=== PATIENT | male | born 1950 | race Caucasian/White ===

== ENCOUNTER 2018-02-01 06:22 | Inpatient (IN) ==
[2018-01-28 15:20] LABS: Appearance,Urine CLEAR; Bilirubin,Urine NEG (NEG); Color,Urine STRAW; Glucose,Urine (UA) NEGATIVE (NEG); Leukocyte Esterase,Urine NEG /uL (NEG); Protein,Urine NEG (NEG); Specific Gravity,Urine 1.011 (1.000-1.035); Urine Blood NEG mg/dL (<0.03); Urobilinogen,Urine NEG (NEG)
[2018-01-28 15:56] LABS: Basophils # (Auto) 0 K/mcL (0.0-0.3); Basophils % (Auto) 0.4 % (0.0-2.0); Eosinophils # (Auto) 0.2 K/mcL (0.0-0.7); Eosinophils % (Auto) 2.7 % (0.0-7.0); Granulocytes % (Auto) 60.6 % (38.0-78.0); Lymphocytes % (Auto) 29.3 % (15.5-49.0); Mean Corpuscular HGB Conc 34.5 g/dL (31.0-36.0); Mean Corpuscular Hemoglobin 32.4 pg (26.0-34.0); Monocytes # (Auto) 0.5 K/mcL (0.1-0.9); Platelet Count 220 K/mcL (140-440); RBC 4.53 M/mcL (4.50-5.90); Red Cell Distribution Width 13.9 % (11.5-14.5)
[2018-01-28 16:25] LABS: Blood Urea Nitrogen 17 mg/dl (8-23)
[~2018-02-01 06:22] MED LIST: ACETAMINOPHEN 500 MG TABLET PO SCH; CELECOXIB 200 MG CAPSULE PO SCH; PREGABALIN 75 MG CAPSULE PO SCH; oxyCODONE 10 MG TAB.ER.12H PO SCH
[2018-02-01] MEDS ORDERED: CLINDAMYCIN 900 MG in DEXTROSE 5% IN WATER 50 ML IV SCH (06:30)
[2018-02-01] MEDS ORDERED: fentaNYL 250 MCG/5 ML VIAL IV ONE (09:05)
[2018-02-01] MEDS ORDERED: NEOSTIGMINE 1 MG/ML VIAL IV ONE (09:05)
[2018-02-01] MEDS ORDERED: GLYCOPYRROLATE 0.2 MG/ML VIAL IV ONE (09:05)
[2018-02-01] MEDS ORDERED: PROPOFOL 200 MG/20 ML VIAL IV ONE (09:05)
[2018-02-01] MEDS ORDERED: KETAMINE 100 MG/ML ML IV ONE (09:05)
[2018-02-01] MEDS ORDERED: ROCURONIUM 10 MG/ML ML IV ONE (09:05)
[2018-02-01] MEDS ORDERED: TRANEXAMIC ACID 1,000 MG/10 ML VIAL IV ONE ×2 (09:05→10:39)
[2018-02-01] MEDS ORDERED: DEXAMETHASONE 10 MG/ML VIAL IV ONE (09:05)
[2018-02-01] MEDS ORDERED: ePHEDrine 50 MG/ML AMPUL IV ONE (09:05)
[2018-02-01] MEDS ORDERED: LIDOCAINE HCL/PF 100 MG/5 ML SYRINGE IV ONE (09:05)
[2018-02-01] MEDS ORDERED: MIDAZOLAM 2 MG/2 ML VIAL IV ONE (09:05)
[2018-02-01] MEDS ORDERED: GENTAMICIN SULFATE 800 MG/20 ML VIAL IR ONE (09:46)
[2018-02-01] MEDS ORDERED: BENZOCAINE/MENTHOL 1 LOZENGE PO PRN (10:39)
[2018-02-01] MEDS ORDERED: POLYETHYLENE GLYCOL 3350 17 GM PACKET PO PRN (10:39)
[2018-02-01] MEDS ORDERED: MAGNESIUM HYDROXIDE 30 ML ORAL.SUSP PO PRN (10:39)
[2018-02-01] MEDS ORDERED: FLEETS ADULT ENEMA PR PRN (10:39)
[2018-02-01] MEDS ORDERED: KETOROLAC 15 MG/ML VIAL IV PRN ×2 (10:39→10:43)
[2018-02-01] MEDS ORDERED: BISACODYL 10 MG SUPP.RECT PR PRN (10:39)
[2018-02-01] MEDS ORDERED: ONDANSETRON 4 MG/2 ML VIAL IV PRN ×2 (10:39→10:43)
--- NOTE | 2018-02-01 10:39 | Brief Operative Note ---
Date of procedure: 02/01/18 Pre-op diagnosis: right shoulder rca and djd Post-op diagnosis: same Procedure: right reverse tsa and bicep tenodesis Grafts/Implants: Yes Anesthesia: GETA Findings: none Surgeon: Roland Parker Wood Preserving Plant Laborer: Scott Phillips Estimated blood loss (cc): 150 Specimens Removed/Pathology: none sent Condition: stable Disposition: PACU
[2018-02-01] MEDS ORDERED: NALOXONE HCL 0.4 MG/ML VIAL IV PRN (10:43)
[2018-02-01] MEDS ORDERED: fentaNYL 100 MCG/2 ML VIAL IV PRN (10:43)
[2018-02-01] MEDS ORDERED: FLUMAZENIL 0.1 MG/ML ML IV PRN (10:43)
[2018-02-01] MEDS ORDERED: ePHEDrine 50 MG/ML AMPUL IV PRN (10:43)
[2018-02-01] MEDS ORDERED: MEPERIDINE 25 MG/ML SYRINGE IV PRN (10:43)
[2018-02-01] MEDS ORDERED: METOPROLOL TARTRATE 5 MG/5 ML VIAL IV PRN (10:43)
[2018-02-01] MEDS ORDERED: ATROPINE SULFATE 0.4 MG/ML VIAL IV PRN (10:43)
[2018-02-01] MEDS ORDERED: METHOCARBAMOL 1,000 MG/10 ML VIAL IV PRN (10:43)
[2018-02-01] MEDS ORDERED: PROMETHAZINE 25 MG/ML VIAL IV PRN (10:43)
[2018-02-01] MEDS ORDERED: IPRATROPIUM/ALBUTEROL 3 ML AMPUL.NEB NEB PRN (10:43)
[2018-02-01] MEDS ORDERED: HYDROmorphone 2 MG/ML VIAL IV PRN (10:43)
[2018-02-01] MEDS ORDERED: diphenhydrAMINE 50 MG/ML VIAL IV PRN (10:43)
[2018-02-01] MEDS ORDERED: LACTATED RINGERS 1,000 ML IV SCH (10:45)
[2018-02-01] MEDS ORDERED: ALBUTEROL SULFATE 1 PUFF INHALER INH PRN (10:46)
--- NOTE | 2018-02-01 11:42 | Operative Note ---
DATE OF OPERATION: 02/01/2018 PREOPERATIVE DIAGNOSIS: Right shoulder rotator cuff arthropathy with severe degenerative arthritis. POSTOPERATIVE DIAGNOSIS: Right shoulder rotator cuff arthropathy with severe degenerative arthritis. PROCEDURE: Right shoulder biceps tenodesis, reverse total shoulder arthroplasty. SURGEON: Roland Parker MD CONSULTANTS INTERN: Scott Phillips PA-C ANESTHESIA: General LMA anesthesia. COMPLICATIONS: None. ESTIMATED BLOOD LOSS: About 150 mL DESCRIPTION OF PROCEDURE: The patient was brought to the operating room and put to sleep with general LMA anesthesia. Once asleep, the patient had the right shoulder sterilely prepped and draped in the usual sterile fashion. Ioban was placed over the skin and confirmed as the operative site. Once done, we then proceeded with the case. We made a deltopectoral approach to the shoulder in a beach chair position. Once done, we then proceeded with a deltopectoral approach, exposed the shoulder, dislocated the shoulder from the joint after retracting the deltoid laterally. We made our neck cut at 130 degrees of inclination and 20 degrees of retroversion. Once done, we removed the bony fragment, subluxed the head posteriorly and also released the remnants of the biceps tendon. Once done, we then performed a 360 degree labral release around the labrum locating centrally the guidepin. We then reamed up to a size 40, implanted a metaglene 29 mm with a central screw 36 mm and then using four peripheral screws, one 20, one 24, one 32 and one 136, all with excellent purchase. We then placed a 40 mm glenosphere, which was 2 mm of offset, 2 mm of the eccentricity inferiorly and then we reduced the head. We then subluxed the humerus anteriorly, broached up to the size of 13 stem. We trialed different trials, had to countersink the stem slightly and remove excess bone. A standard thickness poly seemed to be appropriate. We then implanted a 13 stem with its naturally occurring poly and this reduced very nicely giving us 1 mm of play with a shuck test. We irrigated thoroughly. I did not repair the subscap. We did repair the biceps tendon with a [id number] to the pec major. There was no complication. The patient tolerated this well without complication. RBH:roxi Job ID: [id number] Doc ID: [id number] Roland Parker MD
--- NOTE | 2018-02-01 11:46 | XRay Report ---
HISTORY: Reason for Exam:Post-OP Total Shoulder FINDINGS: There is a well-positioned reverse shoulder prosthesis on the right side. No fracture is present and there is no abnormal soft tissue calcifications around the joint. Mild arthritis is present at the acromioclavicular joint. The right lung is incompletely expanded. There is a streaky infiltrate above the right diaphragm. This could be atelectasis or aspiration. Impression: Well-positioned right shoulder prosthesis Small right lower lobe infiltrate Interpreted and Authenticated by: Brent David 02/01/18
[2018-02-01] MEDS: 0.9 % SODIUM CHLORIDE 10 ML SYRINGE IV SCH ×2 (15:45→22:22)
[2018-02-01] MEDS: 0.45 % SODIUM CHLORIDE 1,000 ML IV SCH (17:00)
[2018-02-01] MEDS: CLINDAMYCIN 600 MG in DEXTROSE 5% IN WATER 50 ML IV SCH (17:00)
[2018-02-01] MEDS: HYDROcodone/APAP 10/325MG TABLET PO PRN (18:55)
[2018-02-01] MEDS ORDERED: SENNOSIDES 1 TABLET PO SCH (21:00)
[2018-02-01] MEDS ORDERED: TEMAZEPAM 15 MG CAPSULE PO PRN (21:00)
[2018-02-01] MEDS: DOCUSATE SODIUM 100 MG CAPSULE PO SCH (22:22)
[2018-02-02] MEDS: CLINDAMYCIN 600 MG in DEXTROSE 5% IN WATER 50 ML IV SCH (01:12)
[2018-02-02] MEDS: 0.45 % SODIUM CHLORIDE 1,000 ML IV SCH (03:15)
[2018-02-02] MEDS: 0.9 % SODIUM CHLORIDE 10 ML SYRINGE IV SCH (07:38)
[2018-02-02] MEDS: HYDROcodone/APAP 10/325MG TABLET PO PRN ×2 (07:38→10:38)
--- NOTE | 2018-02-02 07:40 | Orthopedic Progress Note ---
Subjective Patient information: Note initiated : 02/02/18 at 7:39 am Service Date, if different from initiated Date: [] Patient: Carl Krause 67 y/o M admitted on 02/01/18 for Right Reverse Total [place] Arthroplasty. Chief Complaint: [Pt is stable this morning on post operative day 1 without any significant concerns or complaints. Patients vital signs have remained stable. Patients dressing is dry and is grossly instact from a neurovascular and motor standpoint. Patients 10 point ROS is otherwise negative. ] Objective Vital signs: Vital Signs Temp Pulse Resp BP Pulse Ox 02/02/18 04:00 97.7 F 79 20 124/72 96 02/02/18 00:00 97.5 F 83 20 122/74 97 02/01/18 20:00 97.8 F 79 22 121/69 97 02/01/18 16:02 97.9 F 18 140/93 94 02/01/18 11:50 97.0 F 63 11 L 122/60 100 02/01/18 11:35 96.9 F L 65 11 L 116/65 94 02/01/18 11:20 97.0 F 57 L 12 145/94 100 02/01/18 11:15 72 18 149/80 100 02/01/18 11:10 62 13 141/79 100 02/01/18 11:05 96.3 F L 66 18 149/81 100 Intake and Output 02/01/18 02/02/18 02/02/18 21:59 05:59 13:59 Intake Total 1914 / 1914 2150 / 2150 Output Total 625 / 625 925 / 925 500 / 500 Balance 1289 / 1289 1225 / 1225 -500 / -500 Intake: IV 54 / 54 1000 / 1000 Sodium Chloride 0.45% 1,000 ml 1000 / 1000 @ 100 mls/hr IV .Q10H CHERYL Rx#: [id number] Cleocin 600 mg In Dextrose 5% 54 / 54 in Water 50 ml @ 100 mls/hr IV Q8H CHERYL Rx#:[id number] Oral 1860 / 1860 1150 / 1150 Output: Void Amount 625 / 625 925 / 925 500 / 500 Other: Meal Dinner Percent of Meal Consumed 100% Feeding Ability Independent # Voids 1 Weight 226 lb Intake & Output: Intake & Output 02/01/18 02/02/18 02/02/18 21:59 05:59 13:59 Intake Total 1914 / 1914 2150 / 2150 Output Total 625 / 625 925 / 925 500 / 500 Balance 1289 / 1289 1225 / 1225 -500 / -500 Weight 226 lb Intake: IV 54 / 54 1000 / 1000 Sodium Chloride 0.45% 1,000 ml 1000 / 1000 @ 100 mls/hr IV .Q10H CHERYL Rx#: [id number] Cleocin 600 mg In Dextrose 5% 54 / 54 in Water 50 ml @ 100 mls/hr IV Q8H CHERYL Rx#:[id number] Oral 1860 / 1860 1150 / 1150 Output: Void Amount 625 / 625 925 / 925 500 / 500 Other: Meal Dinner Percent of Meal Consumed 100% Feeding Ability Independent # Voids 1 Incision: Yes healing Incision clean and dry: Yes Dressing: Yes clean, Yes dry Weight bearing status: full Neurological exam IM: Yes motor sensory intact, Yes neurovascular intact Extremities exam IM: Yes Foot pink and warm, Yes neurovascular intact - Labs CBC & BMP: 02/02/18 04:50 01/28/18 14:23 Labs: Orthopedic Labs 01/28/18 14:23 PT 13.8 INR 1.1 APTT 29 02/02/18 01/28/18 04:50 14:23 Hgb 12.9 L 14.7 Hct 38.0 L 42.5 Assessment and Plan (1) Hx of total shoulder replacement The patient has been educated regarding dressing care, Physical Therapy recommendations, home exercises, restrictions, and follow up appointments. The patient has had all necessary DME prescribed. The patient has remained stable during their hospital course. The patient was discharge with a stable exam. Leave Dermabond patch intact until followup Status: Acute
--- NOTE | 2018-02-02 07:42 | Discharge Summary ---
Ortho Discharge - TSA - Patient Instructions Diet: Regular Diet Activity: activity as tolerated, weight bearing as tolerated Total Shoulder Protocol: Leave immobilizer in place except for bathing and ROM. Abduction pillow. Continue to wear sling until seen by physician. Codman Pendulum : These exercises use momentum produced by your body to move your shoulder joint. Bend your knees and shift your weight to your front leg, then back, allowing your arm to swing in the same directions. Using the same technique, alternately shift your weight between your right and left legs, allowing your arm to swing from side to side. These exercises are also performed in counterclockwise and clockwise circular motions. Typically these exercises are performed several times per day, for a set number repetitions or minutes, such as 20 times in a row or 5 minutes at a time. Dressing Care: May shower in 2 days Patient Education: Shoulder Arthroplasty (DC) - Problem Maintenance (1) Hx of total shoulder replacement Status: Acute - Follow Up Plan Follow Up Appointments: Scott Phillips PA-C [Physician Airframe Design Engineer] - 02/16/18 10:40 am Disposition: Home, Self-Care Prognosis: Good Rehab Potential: Good I certify that the patient requires SNF services: No Overall status at discharge: patient is progressing back to baseline - Orders For Discharge Prescriptions: Docusate Sodium [Colace] 100 mg PO BID #60 cap HYDROcodone/APAP 10/325MG [[place] 10-325Mg] 1 - 2 tab PO Q4HP PRN #75 tab PRN Reason: Pain Level 3-6
[2018-02-02] MEDS: DOCUSATE SODIUM 100 MG CAPSULE PO SCH (08:28)
== END 2018-02-02 10:50 | disposition home or self-care (01) | DRG 483 ==
LOC: MEDSUR 06:22
PROVIDERS: ADMIT Orthopaedic Surgery; ATTEND Orthopaedic Surgery